=== PATIENT | female | born 1975 | race Caucasian/White ===

== ENCOUNTER 2021-03-16 03:03 | Emergency (ER) | payer OTHER ==
[~2021-03-16] VITALS: Ht 175.3 cm; Wt 65.9 kg
[2021-03-16] MEDS ORDERED: MORPHINE SULFATE 4 MG/ML, 1ML ONE ×2 (03:21→04:24)
[2021-03-16] MEDS ORDERED: ONDANSETRON 2MG/ML, 2ML ONE (03:21)
[2021-03-16] MEDS: MORPHINE SULFATE 4 MG/ML, 1ML IVPush PRN ×2 (03:28→04:27)
[2021-03-16 03:29] LABS: BASOPHILS % (AUTO) 0 % (0-1); EOSINOPHILS % (AUTO) 2 % (1-7); LYMPHOCYTES % (AUTO) 12 % (22-44); MEAN CORPUSCULAR HEMOGLOBIN 31.2 pg (27.0-34.8); MEAN CORPUSCULAR HGB CONC 34.3 g/dL (32.4-35.8); MONOCYTES % (AUTO) 6 % (2-9); NEUTROPHILS % (AUTO) 80 % (42-75); PLATELET COUNT 273 x10^3/uL (130-400); RED BLOOD COUNT 3.68 x10^6/uL (3.82-5.3); RED CELL DISTRIBUTION WIDTH 13.8 % (9.6-15.2)
[2021-03-16] MEDS ORDERED: PLEASE ENTER ALLERGIES MC SCH (03:30)
[2021-03-16] MEDS ORDERED: SODIUM CHLORIDE 0.9% 1,000ML IVBOLUS ONE (03:30)
[2021-03-16] MEDS ORDERED: ONDANSETRON 2MG/ML, 2ML IVPush ONE (03:30)
[2021-03-16] MEDS ORDERED: ALPR0.5T PO (03:31)
[2021-03-16] MEDS ORDERED: PREN1TAB33 PO (03:31)
[2021-03-16] MEDS ORDERED: VORT20TA PO (03:33)
[2021-03-16 03:35] LABS: ALANINE AMINOTRANSFERASE 20 U/L (12-78); ALBUMIN 3.1 g/dL (3.4-5.0); ANION GAP 6 mmol/L (5-15); CALCIUM 7.7 mg/dL (8.5-10.1); CHLORIDE 108 mmol/L (98-107); CREATININE 0.53 mg/dL (0.55-1.02)
[2021-03-16 03:40] LABS: ALKALINE PHOSPHATASE 72 U/L (45-117); BILIRUBIN,TOTAL 0.4 mg/dL (0.2-1.0); TOTAL PROTEIN 6.6 g/dL (6.4-8.2)
--- NOTE | 2021-03-16 03:56 | NUR ---
pt states pain has improved a little bit: 01/16, nausea has improved as well. vss, no other needs at this time
[2021-03-16 04:29] VITALS: BP 113/61
[2021-03-16] MEDS ORDERED: KETOROLAC 30 MG/1 ML IVPush ONE (04:30)
--- NOTE | 2021-03-16 05:02 | NUR ---
pt steady ambulating, tolerated po fluids and crackers. pt's coming to pick her up. piv d/c's with tip intact
== END 2021-03-16 05:07 | disposition home or self-care (01) ==
LOC: ED 04:55
DX: R10.11 Right upper quadrant pain (principal); R10.13 Epigastric pain; R11.2 Nausea with vomiting, unspecified
CPT/HCPCS: 36415; 80053; 83690; 84703; 85025; 96361; 96374; 96375; 96376; 99284; J2270; J2405; J7030